=== PATIENT | female | born 1980 | race Two or more races ===

== ENCOUNTER 2017-10-19 18:46 | Emergency (ER) | payer SELFPAY ==
[~2017-10-19] VITALS: Ht 160 cm; Wt 94.8 kg
--- NOTE | 2017-10-19 19:11 | NUR ---
DR BOURGEOIS AT BEDSIDE FOR EVAL.
[2017-10-19 19:29] LABS: APPEARANCE,URINE Cloudy (CLEAR); BILIRUBIN,URINE Negative (NEGATIVE); BLOOD, URINE Large Ery/uL (NEGATIVE); COLOR,URINE Amber (YELLOW); KETONES,URINE Negative (NEGATIVE); LEUKOCYTE ESTERASE ,URINE Trace (NEGATIVE); NITRITE, URINE Negative (NEGATIVE); PH,URINE 5.5 (5.0-8.0); PROTEIN,URINE Negative (NEGATIVE); UGLUCOSE Negative (NEGATIVE); UROBILINOGEN,URINE 0.2 EU/dL (0.2)
[2017-10-19 19:36] LABS: BASOPHILS # (AUTO) 0.2 /CMM (0.0-0.2); BASOPHILS % (AUTO) 1.8 % (0.0-2.0); EOSINOPHILS # (AUTO) 0.3 /CMM (0.0-0.7); EOSINOPHILS % (AUTO) 3.2 % (0.0-6.0); HEMATOCRIT 44 % (33-45); HEMOGLOBIN 15.3 g/dL (11.5-14.8); LYMPHOCYTES # (AUTO) 3.1 /CMM (0.8-4.8); LYMPHOCYTES % (AUTO) 31.8 % (20.0-44.0); MEAN CORPUSCULAR HEMOGLOBIN 30 PG (26.0-33.0); MEAN CORPUSCULAR HGB CONC 35 g/dl (31.0-36.0); MEAN CORPUSCULAR VOLUME 86 fL (82-100); MONOCYTES # (AUTO) 0.4 /CMM (0.1-1.30); MONOCYTES % (AUTO) 4.2 % (2.0-12.0); NEUTROPHILS # (AUTO) 5.8 /CMM (1.8-8.9); PLATELET COUNT (AUTO) 332 /CMM (150-450); RDW COEFFICIENT OF VARIATION 12.1 (11.5-15.0); RED BLOOD CELL COUNT(AUTO) 5.09 MIL/uL (4.0-5.2); WHITE BLOOD COUNT (AUTO) 9.8 K/uL (4.3-11.0)
[2017-10-19 19:52] LABS: RBC,URINE 51-80 /HPF (0-2)
[2017-10-19 19:53] LABS: BACTERIA,URINE Few /HPF (None Seen); SQUAMOUS EPITHELIAL CELL,UR Few /HPF (None Seen)
--- NOTE | 2017-10-19 20:30 | NUR ---
Patient discharged to home in stable condition. Written and verbal after care instructions given. Patient verbalizes understanding of instruction.
[2017-10-19 23:07] VITALS: BP 136/94
== END 2017-10-19 23:08 | disposition home or self-care (01) ==
LOC: ER 18:48
DX: O20.0 Threatened abortion (principal); Z90.49 Acquired absence of other specified parts of digestive tract
CPT/HCPCS: 36415; 76856; 81001; 84702; 85025; 86850; 99285; A4606; Z7610; 81000-TC

== ENCOUNTER 2019-08-19 02:07 | Emergency (ER) | payer SELFPAY ==
[~2019-08-19] VITALS: Ht 160 cm; Wt 81.6 kg
--- NOTE | 2019-08-19 02:18 | NUR ---
TO ER BED 8, PT CAME TO ER W/ C/O CHEST PAIN. PT STATES THAT SHE FEELS A "PULLLING" SENSATION IN HER LEFT SIDE OF THE CHEST THAT RADIATES UP TO HER FACE. SHE STATES THAT SHE TASTES A METALLIC TASTE IN HER MOUTH. SHE ALSO HAS TINGLING FEELING IN HER FACE, ARMS, LEGS. SHE STATES THAT SHE MAY HAVE A PANIC ATTACK. AAOX4. NO SOB. BREATHING EVENLY AND UNLABORED. CONNECTED TO THE MONITOR.
--- NOTE | 2019-08-19 02:20 | NUR ---
SEEN AND EXAMINED BY
[2019-08-19] MEDS ORDERED: LORAZEPAM 1 MG TABLET ONE (02:25)
[2019-08-19] MEDS ORDERED: LORAZEPAM 1 MG TABLET PO ONE (02:30)
[2019-08-19] MEDS ORDERED: IBUPROFEN 400 MG TABLET PO ONE (03:00)
[2019-08-19] MEDS ORDERED: IBUPROFEN 400 MG TABLET ONE (03:05)
[2019-08-19 03:26] VITALS: BP 133/87
--- NOTE | 2019-08-19 03:26 | NUR ---
IV removed. Catheter intact and site benign. Pressure and 4x4 applied to site. No bleeding noted. Patient discharged to home in stable condition. Written and verbal after care instructions given. Patient verbalizes understanding of instruction.
== END 2019-08-19 03:27 | disposition home or self-care (01) ==
LOC: ER 02:09
DX: F41.9 Anxiety disorder, unspecified (principal); F31.9 Bipolar disorder, unspecified; Z90.49 Acquired absence of other specified parts of digestive tract
CPT/HCPCS: 71045-TC